=== PATIENT | male | born 1975 | race Caucasian/White ===

== ENCOUNTER → 2016-03-20 | Outpatient (CLI) | payer OTHER ==
--- NOTE | 2016-03-20 15:30 | DIAGNOSTIC IMAGING REPORT ---
PA CHEST WITH LEFT-SIDED RIB SERIES CLINICAL HISTORY: Left chest wall pain. Palpable bulge. FINDINGS: A PA chest radiograph with 4 additional views from a left-sided rib series are obtained. No prior studies are available for comparison at the time of dictation. The cardiomediastinal silhouette is unremarkable. Scattered calcified granulomas are noted. The lungs and pleural spaces are otherwise clear. No pneumothorax is seen. There is no radiographic evidence of left-sided rib fracture. The remainder of the bony thorax is grossly intact. IMPRESSION: 1. No active disease in the chest. 2. There is no radiographic evidence of left-sided rib fracture as clinically queried. Electronically signed by: Richi Morley M.D. 03/20/2016 3:29 PM Dictated Date/Time: 03/20/2016 3:27 PM
== END | disposition home or self-care (01) ==
LOC: C.RADBBURG 14:53
PROVIDERS: ATTEND Family Medicine
DX: R07.82 Intercostal pain (principal)

== ENCOUNTER → 2016-03-31 | Outpatient (CLI) | payer OTHER ==
--- NOTE | 2016-03-31 09:05 | DIAGNOSTIC IMAGING REPORT ---
ABDOMEN COMPLETE (US) CLINICAL HISTORY: Upper abdominal pain COMPARISON STUDY: No previous studies for comparison. FINDINGS: The pancreas appears sonographically normal. The gallbladder appears sonographically normal. The liver appears sonographically normal. There is no ductal dilatation. The common bile duct measures 3 mm. The right kidney measures 9.9 cm in length. The left kidney measures 11.1 cm in length. No renal masses are visualized. There is no hydronephrosis. No splenic masses are visualized. The spleen measures 10 cm. The IVC appears normal. There is no aortic aneurysm. IMPRESSION: Normal study Electronically signed by: Jakob Valdes M.D. 03/31/2016 9:04 AM Dictated Date/Time: 03/31/2016 9:02 AM
== END | disposition home or self-care (01) ==
LOC: C.ULTR 08:27
PROVIDERS: ATTEND Family Medicine
DX: R10.9 Unspecified abdominal pain (principal)